=== PATIENT | male | born 1955 | race Caucasian/White ===

== ENCOUNTER 2016-11-28 17:11 | Emergency (ER) | payer MEDICARE, MEDICAID ==
[2016-11-28] MEDS ORDERED: IBUPROFEN 100 MG/5 ML SUSP PO ONE (18:04)
--- NOTE | 2016-11-28 18:10 | Emergency Department Record ---
History of Present Illness - General Chief complaint: Extremity Problem Stated complaint: SHUT FINGER IN DOOR Time Seen by Provider: 11/28/16 18:04 Source: Family (cargiver from [facility] home) Mode of Arrival: Wheelchair Limitations: No limitations - History of Present Illness Initial comments: 61 yo male with a history of moderate-sever mental retardation presents to ED for evaluation of a finger injury after the right finger was accidentally closed in a door. Patient is nonverbal, but per caregiver, has been holding the finger on and off all day likely due to pain. Patient has not received any analgesia following the injury this morning. MD Complaint: Extremity pain Onset/Timin -: Days(s) Location: Right, Hand History of Same: No Improves with: Nothing Worsens with: Nothing - Related Data Home Medications Medication Instructions Recorded Confirmed Last Taken Acyclovir [Zovirax] 400 mg PO DAILY 08/29/14 11/28/16 11/28/16 Alendronate Sodium 35 mg PO DAILY 08/29/14 11/28/16 11/28/16 Calcium Carbonate/Mag Oxide 1 each PO DAILY 08/29/14 11/28/16 11/28/16 [Oyster Shell Calcium-Magnes Tb] Docusate Sodium [Colace] 100 mg PO DAILY 08/29/14 11/28/16 11/28/16 L. Acidophilus/Bulgaricus 1 each PO DAILY 08/29/14 11/28/16 11/28/16 [Floranex Tablet] Lamotrigine [Lamictal] 150 mg PO DAILY 08/29/14 11/28/16 11/28/16 Lamotrigine [Lamictal] 200 mg PO DAILY 08/29/14 11/28/16 11/28/16 Levetiracetam [Keppra Xr] 750 mg PO TID 08/29/14 11/28/16 11/28/16 Magnesium Oxide [Mag Ox] 400 mg PO DAILY 08/29/14 11/28/16 11/28/16 Multivits,Ca,Minerals/Iron/FA 1 each PO DAILY 08/29/14 11/28/16 11/28/16 [Thera M Plus Tablet] Niacin [Niacor] 1,000 mg PO QHS 08/29/14 11/28/16 11/28/16 [place]-3/Dha/Epa/Fish Oil [Fish Oil] 1,000 mg PO DAILY 08/29/14 11/28/16 11/28/16 Quetiapine Fumarate [Seroquel] 25 mg PO TID 08/29/14 11/28/16 11/28/16 Quetiapine Fumarate [Seroquel] 50 mg PO QHS 08/29/14 11/28/16 11/28/16 Quetiapine Fumarate [Seroquel] 200 mg PO QHS 08/29/14 11/28/16 11/28/16 Allergies Allergy/AdvReac Type Severity Reaction Status Date / Time cephalexin Allergy HYPERSENSIT Verified 11/28/16 17:49 IVITY chloral hydrate [From Noctec] Allergy HYPERSENSIT Verified 11/28/16 17:49 IVITY doxycycline Allergy HYPERSENSIT Verified 11/28/16 17:49 IVITY sulfamethoxazole Allergy HYPERSENSIT Verified 11/28/16 17:49 [From Bactrim] IVITY trimethoprim [From Bactrim] Allergy HYPERSENSIT Verified 11/28/16 17:49 IVITY Travel Screening - Travel/Exposure Within Last 30 Days Have you traveled within the last 30 days?: No - Travel/Exposure Within Last Year Have you traveled outside the [place] in the last year?: No - Additonal Travel Details Have you been exposed to anyone with a communicable illness?: No - Travel Symptoms Symptom Screening: None Review of Systems ROS unobtainable: Other (patient is non-verbal due to MR) Musculoskeletal: Reports: Arthralgia (right ring finger pain) Skin: Reports: Bruising Past Medical History - SOCIAL HISTORY Smoking Status: Never smoker Alcohol Use: None Drug Use: None - RESPIRATORY Hx Respiratory Disorders: No - CARDIOVASCULAR Hx Cardio Disorders: Yes Hx Hypertension: Yes - NEURO Hx Neuro Disorders: Yes Hx Seizures: Yes Comment:: profound mental retardation - GI Hx GI Disorders: No - Hx Genitourinary Disorders: No - ENDOCRINE Hx Endocrine Disorders: No - MUSCULOSKELETAL Hx Musculoskeletal Disorders: Yes Hx Arthritis: Yes Comment:: quadriplegia - PSYCH Hx Psych Problems: Yes Hx Anxiety: Yes Comment:: self abuser - HEMATOLOGY/ONCOLOGY Hx Hematology/Oncology Disorders: No Family Medical History Any Significant Family History?: No Physical Exam - General General Appearance: Alert, No acute distress, Other (at baseline mental status and behavior per caregiver) Limitations: Language barrier - Head Head exam: Atraumatic, Normocephalic, Normal inspection Head exam detail: negative: Abrasion, Contusion, Cox's sign, General tenderness, Hematoma, Laceration - Eye Eye exam: Normal appearance. negative: Periorbital swelling, Periorbital tenderness - ENT Ear exam: negative: Auricular hematoma, Auricular trauma Nasal Exam: negative: Active bleeding, Discharge, Dried blood Mouth exam: negative: Drooling, Laceration, Tongue elevation - Neck Neck exam: Normal inspection, Full ROM. negative: Tenderness - Respiratory Respiratory exam: Normal lung sounds bilaterally. negative: Respiratory distress, Rhonchi, Stridor, Wheezes - Cardiovascular Cardiovascular Exam: Regular rate, Normal rhythm, Normal heart sounds - GI/Abdominal GI/Abdominal exam: Soft. negative: Rebound, Rigid, Tenderness - Rectal Rectal exam: Deferred - exam: Deferred - Extremities Extremities exam: Full ROM, Tenderness, Other (STS and ecchymosis from the PIP distally of the right ring finger, subungal hematoma is present, and there is STS to the tuft of the finger as well, FROM on exam, no evidence for tendon laceration). negative: Calf tenderness, Pedal edema - Back Back exam: Denies: CVA tenderness (R), CVA tenderness (L) - Neurological Neurological exam: Alert, Other (at his baseline mental status per caregiver) - Psychiatric Psychiatric exam: Normal affect, Normal mood - Skin Skin exam: Normal color. negative: Abrasion Type of lesion: negative: abrasion Course Vital Signs 11/28/16 17:49 Temperature 97.9 F Pulse Rate 90 Respiratory 20 Rate Blood Pressure 85/30 Pulse Ox 98 - Reevaluation(s) Reevaluation #1: 11/28/16 18:34 Right ring finger: Associated non-displaced tuft fracture is present. 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 Similarly, trephonation of the patient's nail for subungal hematoma does not seen safe given the patient's MR and non-compliance. Will discharge home with instructions for symptomatic care including ice and NSAIDs for his symptoms with follow-up in 5-7 days. Disposition Disposition: Discharge Clinical Impression: Closed fracture of tuft of distal phalanx of finger Qualifiers: Encounter type: initial encounter Qualified Code(s): S62.639A - Displaced fracture of distal phalanx of unspecified finger, initial encounter for closed fracture Disposition: Home, Self-Care Condition: (2) Stable Instructions: Finger Fracture (ED) Additional Instructions: Return to ED if your symptoms worsen or if you have any concerns. Ice and Ibuprofen as directed. Follow-up with your family doctor in 5-7 days as directed. Forms: Patient Portal Access Time of Disposition: 18:37
== END 2016-11-28 18:54 | disposition home or self-care (01) ==
LOC: ER 17:11
DX: S62.664A Nondisplaced fracture of distal phalanx of right ring finger, initial encounter for closed fracture (principal); W22.8XXA Striking against or struck by other objects, initial encounter; F71 Moderate intellectual disabilities; I10 Essential (primary) hypertension
CPT/HCPCS: 73140; 99283

== ENCOUNTER 2017-04-03 11:08 | Emergency (ER) | payer MEDICARE, MEDICAID ==
[2017-04-03] MEDS ORDERED: ONDANSETRON 4 MG ODT TABLET SL ONE (11:21)
--- NOTE | 2017-04-03 11:26 | Emergency Department Record ---
History of Present Illness - General Chief complaint: Vomiting Stated complaint: VOMITING,NOT EATING Time Seen by Provider: 04/03/17 11:10 Source: Patient Mode of Arrival: Wheelchair Limitations: Other (Severe Mental Retardation, baseline non verbal) - History of Present Illness Initial comments: 61 yo male presents with staff from the [facility]. He has severe mental retardation and requires full care. At baseline he is non verbal. By history he vomited once yesterday in the early evening. He refused to eat dinner or breakfast since time. No return of vomiting. No fevers. No diarrhea. This morning he did take his regularly scheduled medications with apple sauce without vomiting. He had a wet depends as well. He is at his baseline alertness which includes grunting and sitting in wheel chair. He has a recurring history of thrush and has not been on any medication for thrush according to the manager home with the patient. Last BM was 03/31. MD complaint: Vomiting Onset/Timin -: Days(s) Description of Vomiting: Food contents Radiation: None Consistency: Intermittent Improves with: None Worsens with: None Associated Symptoms: Nausea/vomiting - Related Data Home Medications Medication Instructions Recorded Confirmed Last Taken Acyclovir [Zovirax] 400 mg PO DAILY 08/29/14 04/03/17 11/28/16 Alendronate Sodium 35 mg PO DAILY 08/29/14 04/03/17 11/28/16 Calcium Carbonate/Magnesium Ox 1 each PO DAILY 08/29/14 04/03/17 11/28/16 [Oyster Shell Calcium-Magnes Tb] Docusate Sodium [Colace] 100 mg PO DAILY 08/29/14 04/03/17 11/28/16 L. Acidophilus/L.bulgaricus 1 each PO DAILY 08/29/14 04/03/17 11/28/16 [Floranex Tablet] Lamotrigine [Lamictal] 150 mg PO DAILY 08/29/14 04/03/17 11/28/16 Lamotrigine [Lamictal] 200 mg PO DAILY 08/29/14 04/03/17 11/28/16 Levetiracetam [Keppra Xr] 750 mg PO TID 08/29/14 04/03/17 11/28/16 Magnesium Oxide [Mag Ox] 400 mg PO DAILY 08/29/14 04/03/17 11/28/16 Multivit,Calc,Mins/Iron/Folic 1 each PO DAILY 08/29/14 04/03/17 11/28/16 [Thera M Plus Tablet] Niacin [Niacor] 1,000 mg PO QHS 08/29/14 04/03/17 11/28/16 [place]-3/Dha/Epa/Fish Oil [Fish Oil] 1,000 mg PO DAILY 08/29/14 04/03/17 11/28/16 Quetiapine Fumarate [Seroquel] 25 mg PO TID 08/29/14 04/03/17 11/28/16 Quetiapine Fumarate [Seroquel] 50 mg PO QHS 08/29/14 04/03/17 11/28/16 Quetiapine Fumarate [Seroquel] 200 mg PO QHS 08/29/14 04/03/17 11/28/16 Previous Rx's Medication Instructions Recorded Nystatin 100,000 unit PO BID #200 oral.susp 04/03/17 Ondansetron [Zofran Odt] 4 mg PO Q8H #10 tab.rapdis 04/03/17 Polyethylene Glycol 3350 [Miralax] 1 packet PO DAILY PRN #7 packet 04/03/17 Allergies Allergy/AdvReac Type Severity Reaction Status Date / Time cephalexin Allergy HYPERSENSIT Verified 11/28/16 17:49 IVITY chloral hydrate [From Noctec] Allergy HYPERSENSIT Verified 11/28/16 17:49 IVITY doxycycline Allergy HYPERSENSIT Verified 11/28/16 17:49 IVITY sulfamethoxazole Allergy HYPERSENSIT Verified 11/28/16 17:49 [From Bactrim] IVITY trimethoprim [From Bactrim] Allergy HYPERSENSIT Verified 11/28/16 17:49 IVITY Travel Screening - Travel/Exposure Within Last 30 Days Have you traveled within the last 30 days?: No Review of Systems ROS unobtainable: Due to mental status Past Medical History - SOCIAL HISTORY Smoking Status: Never smoker Alcohol Use: None Drug Use: None - RESPIRATORY Hx Respiratory Disorders: No - CARDIOVASCULAR Hx Cardio Disorders: Yes Hx Hypertension: Yes - NEURO Hx Neuro Disorders: Yes Hx Seizures: Yes Comment:: profound mental retardation - GI Hx GI Disorders: No - Hx Genitourinary Disorders: No - ENDOCRINE Hx Endocrine Disorders: No - MUSCULOSKELETAL Hx Musculoskeletal Disorders: Yes Hx Arthritis: Yes Comment:: quadriplegia - PSYCH Hx Psych Problems: Yes Hx Anxiety: Yes Comment:: self abuser - HEMATOLOGY/ONCOLOGY Hx Hematology/Oncology Disorders: No Family Medical History Any Significant Family History?: No Physical Exam - General General Appearance: Alert, No acute distress, Other (sitting in wheelchair, non verbal but alert) Limitations: Altered mental status - Head Head exam: Atraumatic - Eye Eye exam: Other (keeps lids closed) - ENT ENT exam: Mucous membranes moist, Other (No definite lesons but the patient is significantly uncooperative with a full oral examination but no swelling, ulcers , mass noted.) Ear exam: Normal external inspection Nasal Exam: Normal inspection Mouth exam: Normal external inspection - Respiratory Respiratory exam: Normal lung sounds bilaterally. negative: Respiratory distress, Rhonchi, Stridor, Wheezes - Cardiovascular Cardiovascular Exam: Regular rate, Normal rhythm, Normal heart sounds - GI/Abdominal GI/Abdominal exam: Soft, Normal bowel sounds, Other (Very soft abdomen, non tender). negative: Distended, Guarding, Hernia, Rebound, Rigid, Tenderness - Rectal Rectal exam: Deferred - exam: Deferred - Extremities Extremities exam: Normal inspection, Full ROM, Normal capillary refill. negative: Tenderness - Back Back exam: Denies: CVA tenderness (R), CVA tenderness (L), Tenderness - Neurological Neurological exam: Alert - Psychiatric Psychiatric exam: negative: Agitated, Anxious - Skin Skin exam: Dry, Intact, Normal color, Warm. negative: Cyanosis, Diaphoretic, Erythema Course Vital Signs 04/03/17 11:20 Temperature 97.9 F Pulse Rate [ 105 H Pulse Ox Probe] Respiratory 20 Rate Blood Pressure 126/105 [Left Arm] Pulse Ox 92 L - Reevaluation(s) Reevaluation #1: The patient is alert and seems to be at baseline He is non verbal and someone uncooperative with staff which is his baseline per prior visit records He does not clinically appear acutely ill or clinically dehydrated Given his limitations of cooperation the least invasive approach was discussed He was given oral Zofran and will be given a PO trial He had a wet diaper this morning, no fever, soft abdomen which are initially reassuring signs for this approach 04/03/17 11:28 04/03/17 11:35 Tolerated Zofran without difficulty Reevaluation #2: The patient is tolerating PO so far. Will continue to observe. 04/03/17 12:11 Reevaluation #3: The patient continues to do well No vomiting of the PO I discussed with the staff member oral hydration and PO today We discussed reasons to return for a recheck His abdomen continues to be very soft and not tender to palpation 04/03/17 12:39 Disposition Disposition: Discharge Clinical Impression: Vomiting Qualifiers: Vomiting type: unspecified Vomiting Intractability: unspecified Nausea presence : unspecified Qualified Code(s): R11.10 - Vomiting, unspecified Disposition: Home, Self-Care Condition: (1) Good Instructions: Acute Nausea and Vomiting (ED) Additional Instructions: Today have Eugenio stay hydrated with frequent but small drinks (4-8 ounces) of water, juice, sports drinks His diet should be bland with soup, broth, jello, pudding, yogurt, or similar items avoiding fried or fatty foods He may have Zofran 4mg every 8 hours if needed Nystatin for the thrush as directed Miralax once daily until he has a bowel movement Prescriptions: Nystatin 100,000 unit PO BID #200 oral.susp Ondansetron [Zofran Odt] 4 mg PO Q8H #10 tab.rapdis Polyethylene Glycol 3350 [Miralax] 1 packet PO DAILY PRN #7 packet PRN Reason: Constipation Forms: Patient Portal Access Time of Disposition: 12:42 Quality - Quality Measures Quality Measures: N/A - Blood Pressure Screening View Details: Yes Blood Pressure Classification: Hypertensive Reading Systolic Measurement: 126 Diastolic Measurement: 105 Screening for High Blood Pressure: < Pre-Hypertensive BP, F/U Documented > [ [id number]] Pre-Hypertensive Follow-up Interventions: Referral to alternative/primary care provider.
== END 2017-04-03 12:52 | disposition home or self-care (01) ==
LOC: ER 11:08
DX: R11.10 Vomiting, unspecified (principal); I10 Essential (primary) hypertension; F72 Severe intellectual disabilities
CPT/HCPCS: 99282

== ENCOUNTER 2017-10-20 20:34 | Emergency (ER) | payer MEDICARE, MEDICAID ==
--- NOTE | 2017-10-20 20:56 | Emergency Department Record ---
History of Present Illness - General Chief Complaint: Laceration(s) Stated Complaint: LACERATION OVER RT EYE Time Seen by Provider: 10/20/17 20:54 Source: Family (caregive) Mode of Arrival: Wheelchair Limitations: Other (MR) - History of Present Illness Initial Commments: 62 yo male presents from a [facility] home for evaluation of a laceration to the right eyebrow sustained while getting out of the shower this evening. Patient has history of sever mental retardation, caregiver provides history. Caregiver denies LOC, patient has been moving all extremities spontaneously. Caregiver reports that the patient's tetanus is currently UTD. Onset/Timin -: Minutes(s) Location: Face Place: Home Context: Accidental Associated Symptoms: None Treatments Prior to Arrival: Bandage - Related Data Hx Tetanus Toxoid Vaccination: Yes Patient Tetanus UTD (within 5 yrs): Yes Previous Rx's Medication Instructions Recorded Nystatin 100,000 unit PO BID #200 oral.susp 04/03/17 Ondansetron [Zofran Odt] 4 mg PO Q8H #10 tab.rapdis 04/03/17 Polyethylene Glycol 3350 [Miralax] 1 packet PO DAILY PRN #7 packet 04/03/17 Allergies Allergy/AdvReac Type Severity Reaction Status Date / Time cephalexin Allergy HYPERSENSIT Verified 11/28/16 17:49 IVITY chloral hydrate [From Noctec] Allergy HYPERSENSIT Verified 11/28/16 17:49 IVITY doxycycline Allergy HYPERSENSIT Verified 11/28/16 17:49 IVITY sulfamethoxazole Allergy HYPERSENSIT Verified 11/28/16 17:49 [From Bactrim] IVITY trimethoprim [From Bactrim] Allergy HYPERSENSIT Verified 11/28/16 17:49 IVITY Review of Systems ROS unobtainable: Due to mental status Skin: Reports: Other (laceration to the right eyebrow) Past Medical History - SOCIAL HISTORY Smoking Status: Never smoker Drug Use: None - RESPIRATORY Hx Respiratory Disorders: No - CARDIOVASCULAR Hx Cardio Disorders: Yes Hx Hypertension: Yes - NEURO Hx Neuro Disorders: Yes Hx Seizures: Yes Comment:: profound mental retardation - GI Hx GI Disorders: No - Hx Genitourinary Disorders: No - ENDOCRINE Hx Endocrine Disorders: No - MUSCULOSKELETAL Hx Musculoskeletal Disorders: Yes Hx Arthritis: Yes Comment:: quadriplegia - PSYCH Hx Psych Problems: Yes Hx Anxiety: Yes Comment:: self abuser - HEMATOLOGY/ONCOLOGY Hx Hematology/Oncology Disorders: No Physical Exam - General General Appearance: Alert, Cooperative, Other (at his baseline mental status) Limitations: Other (MR) - Head Head exam: Normocephalic Head exam detail: Laceration (2.5 cm laceration to the right eyebrow, no active bleeding is present). negative: Abrasion, Contusion, Cox's sign, General tenderness, Hematoma - Eye Eye exam: Normal appearance. negative: Conjunctival injection, Periorbital swelling, Periorbital tenderness, Scleral icterus - ENT Ear exam: negative: Auricular hematoma, Auricular trauma Mouth exam: negative: Drooling, Laceration, Muffled voice, Tongue elevation - Neck Neck exam: Normal inspection. negative: Meningismus, Tenderness - Respiratory Respiratory exam: Normal lung sounds bilaterally. negative: Rales, Respiratory distress, Rhonchi, Stridor - Cardiovascular Cardiovascular Exam: Regular rate, Normal rhythm, Normal heart sounds - GI/Abdominal GI/Abdominal exam: Soft. negative: Rebound, Rigid, Tenderness - Rectal Rectal exam: Deferred - exam: Deferred - Extremities Extremities exam: Normal inspection. negative: Calf tenderness, Pedal edema, Tenderness - Neurological Neurological exam: Alert - Psychiatric Psychiatric exam: Normal affect, Normal mood - Skin Skin exam: negative: Abrasion, Normal color Type of lesion: negative: abrasion Course Vital Signs 10/20/17 20:45 Temperature 98.8 F Pulse Rate [ 70 Pulse Ox Probe] Respiratory 18 Rate Blood Pressure 120/116 [Left Arm] Pulse Ox 95 - Reevaluation(s) Reevaluation #1: 10/20/17 21:03 Procedure Note: Given the risk of sedation and patient cooperation with sever MR , discussed suture repair vs. Derbaond. Caregiver is in agreement for the safety of the caregivers and risk of sedation to close the patient's wound with Dermabond. Wound was cleaned with Hibiclens solution, no FBs present. Dermabond was applied without complications resulting in hemostasis of the patient's wound. Patient tolerated the procedure well and appears stable for discharge at this time. Disposition Disposition: Discharge Clinical Impression: Laceration of eyebrow Qualifiers: Encounter type: initial encounter Laterality: right Qualified Code(s): S01.111A - Laceration without foreign body of right eyelid and periocular area, initial encounter Disposition: Home, Self-Care Condition: (2) Stable Instructions: Skin Adhesive Care (ED) Additional Instructions: Return to ED if your symptoms worsen or if you have any concerns. Skin adhesive will degrade in 3-5 days. Follow-up with your family doctor in 3-5 days as directed. Forms: Patient Portal Access Time of Disposition: 20:56 Quality - Quality Measures Quality Measures: N/A - Blood Pressure Screening Does Patient Have Any of the Following: Active Dx of HTN Blood Pressure Classification: Hypertensive Reading Systolic Measurement: 120 Diastolic Measurement: 116 Screening for High Blood Pressure: Patient Exclusion, Hx of HTN [G9744]
== END 2017-10-20 21:04 | disposition home or self-care (01) ==
LOC: ER 20:34
DX: S01.111A Laceration without foreign body of right eyelid and periocular area, initial encounter (principal); W45.8XXA Other foreign body or object entering through skin, initial encounter; Y93.E1 Activity, personal bathing and showering; Y92.192 Bathroom in other specified residential institution as the place of occurrence of the external cause
CPT/HCPCS: 99282

== ENCOUNTER 2019-09-22 19:59 | Emergency (ER) | payer MEDICARE ==
--- NOTE | 2019-09-22 20:39 | Emergency Department Record ---
History of Present Illness - General Chief Complaint: Fall Injury Stated Complaint: FALL INJURY Time Seen by Provider: 09/22/19 20:23 Source: Patient Mode of Arrival: Ambulatory Limitations: No limitations - History of Present Illness Initial Comments: 64 yo male presents with a eyebrow laceration. He rolled in his bed at his AFT and hit his head against the rail. No significant forceful fall on the floor. No LOC. No blood thinners. He is at his baseline mental status. No other obvious injuries seen by the skilled nursing staff. MD Complaint: Fall -: Minutes(s) Fall From: Other (roller over in bed hit rail) When Fall Occurred: Just prior to arrival Fall Witnessed: Yes, by living facility staff Place [facility] Occ[facility] Loss of Consciousness: None Prolonged Down Time?: No Symptoms Prior to Fall: None Location: Head Quality: Other Context: Other Associated Symptoms: Denies - Jennifer Coma Scale Eye Response: (4) Open spontaneously (At his baseline) - Related Data Previous Rx's Medication Instructions Recorded Nystatin 100,000 unit PO BID #200 oral.susp 04/03/17 Polyethylene Glycol 3350 [Miralax] 1 packet PO DAILY PRN #7 packet 04/03/17 Allergies Allergy/AdvReac Type Severity Reaction Status Date / Time cephalexin Allergy HYPERSENSIT Verified 09/22/19 20:22 IVITY chloral hydrate [From Noctec] Allergy HYPERSENSIT Verified 09/22/19 20:22 IVITY doxycycline Allergy HYPERSENSIT Verified 09/22/19 20:22 IVITY sulfamethoxazole Allergy HYPERSENSIT Verified 09/22/19 20:22 [From Bactrim] IVITY trimethoprim [From Bactrim] Allergy HYPERSENSIT Verified 09/22/19 20:22 IVITY Review of Systems ROS unobtainable: Due to mental status (Baseline mental impairment) Past Medical History - SOCIAL HISTORY Smoking Status: Never smoker - RESPIRATORY Hx Respiratory Disorders: No - CARDIOVASCULAR Hx Cardio Disorders: Yes Hx Hypertension: Yes - NEURO Hx Neuro Disorders: Yes Hx Seizures: Yes Comment:: profound mental retardation - GI Hx GI Disorders: No - Hx Genitourinary Disorders: No - ENDOCRINE Hx Endocrine Disorders: No - MUSCULOSKELETAL Hx Musculoskeletal Disorders: Yes Hx Arthritis: Yes Comment:: quadriplegia - PSYCH Hx Psych Problems: Yes Hx Anxiety: Yes Comment:: self abuser - HEMATOLOGY/ONCOLOGY Hx Hematology/Oncology Disorders: No Family Medical History Family Hx Comment (NOT TO BE USED IN PLACE OF ITEMS BELOW): unknown Physical Exam - General General Appearance: Alert Limitations: No limitations - Head Head exam: negative: Atraumatic, Normal inspection Head exam detail: Laceration Image of Face/Head: 1 - 1.5cm linear laceration to the eye brow, clean, no FB - Eye Eye exam: Normal appearance. negative: Conjunctival injection - ENT ENT exam: Normal exam, Mucous membranes moist Ear exam: Normal external inspection Nasal Exam: Normal inspection Mouth exam: Normal external inspection Teeth exam: Normal inspection - Neck Neck exam: Normal inspection, Full ROM. negative: Tenderness - Respiratory Respiratory exam: Normal lung sounds bilaterally. negative: Respiratory distress - Cardiovascular Cardiovascular Exam: Regular rate, Normal rhythm, Normal heart sounds - GI/Abdominal GI/Abdominal exam: Soft. negative: Tenderness - Rectal Rectal exam: Deferred - exam: Deferred - Extremities Extremities exam: Normal inspection, Full ROM. negative: Joint swelling, Tenderness - Back Back exam: Denies: CVA tenderness (R), CVA tenderness (L) - Neurological Neurological exam: Alert - Psychiatric Psychiatric exam: negative: Agitated, Anxious - Skin Type of lesion: Laceration Course - Reevaluation(s) Reevaluation #1: The patient is at his baseline The injury did not by history occur from any significant mechanical fall that is high risk No immediate indication for HCT No blood thinners 09/22/19 20:26 Procedure: Eyebrow laceration 1.5 m laceration of the left eyebrow Wound was cleaned and prepped in sterile fashion, no residual FB identified on examination. The wound was copiously irrigated with NS Wound was anesthetized with3 mL of 1% Lidocaine with epinephrine The laceration was repaired with 3 Ethilon 4-0 sutures in interrupted fashion. Patient tolerated the procedure well without complications. We discussed home care, reasons for immediate return if any concerns, and suture removal in 7 days 09/22/19 20:39 Disposition Disposition: Discharge Clinical Impression: Eyebrow laceration Disposition: Home, Self-Care Condition: (1) Good Instructions: Facial Laceration (ED) Additional Instructions: You may clean the area with mild soap and water twice daily You may apply a thin layer of topical antibiotic as well after cleaning Return of be seen immediately if Eugenio had pain, concerns for infection of the laceration, concern for any other injuries Return to the have the sutures removed in one week Forms: Patient Portal Access Time of Disposition: 20:42 Quality - Quality Measures Quality Measures: N/A - Blood Pressure Screening Does Patient Have Any of the Following: No Blood Pressure Classification: Normal BP Reading Systolic Measurement: 119 Diastolic Measurement: 64 Screening for High Blood Pressure: < Normal BP, F/U Not Required > [[id number]]
== END 2019-09-22 20:48 | disposition home or self-care (01) ==
LOC: ER 19:59
DX: S01.112A Laceration without foreign body of left eyelid and periocular area, initial encounter (principal); W06.XXXA Fall from bed, initial encounter; Y92.122 Bedroom in nursing home as the place of occurrence of the external cause; I10 Essential (primary) hypertension
CPT/HCPCS: 12011; 99283